=== PATIENT | male | born 1965 | race Caucasian/White ===

== ENCOUNTER 2018-11-16 16:19 | Emergency (ER) | payer MEDICAID ==
[~2018-11-16] VITALS: Ht 167.6 cm; Wt 89.0 kg
[~2018-11-16 16:19] MED LIST: DIPH25CA61 PO; INDO50CA5 PO; LORA10TA62 PO
--- NOTE | 2018-11-16 16:31 | NUR ---
PRECEPTOR RN: PT TAKEN TO TR02 & ASSESSED BY MD MCKEON DIRECTLY FROM TRIAGE. PT DRESSED IN GOWN, ATTACHED TO CONTINUOUS CARDIAC, PULSE OX & BP. REPORT TO NAHOMY LAUREANO
--- NOTE | 2018-11-16 16:33 | NUR ---
PT REPORTS FATIGUE, N/V, RIGHT SIDED ABD PAIN. PT PALE, DIAPHORETIC. ER PA IN TO ASSESS PT.
[2018-11-16] MEDS ORDERED: ONDANSETRON 2MG/ML, 2ML ONE (16:53)
[2018-11-16] MEDS ORDERED: SODIUM CHLORIDE 0.9% 1,000ML IVBOLUS ONE (17:00)
[2018-11-16] MEDS ORDERED: ONDANSETRON 2MG/ML, 2ML IVPush ONE (17:00)
[2018-11-16] MEDS ORDERED: SODIUM CHLORIDE FLUSH 10ML SYR IVF ONE (17:00)
--- NOTE | 2018-11-16 17:25 | NUR ---
PT STATES HE DOES NOT WANT PAIN MEDS AT THIS TIME
[2018-11-16 17:30] LABS: BASOPHILS # (AUTO) 0.03 x10^3/uL (0-0.1); BASOPHILS % (AUTO) 0 % (0-1); EOSINOPHILS # (AUTO) 0.15 x10^3/uL (0-0.4); EOSINOPHILS % (AUTO) 3 % (1-7); LYMPHOCYTES # (AUTO) 2.18 x10^3/uL (1-3.4); LYMPHOCYTES % (AUTO) 37 % (22-44); MD NO; MEAN CORPUSCULAR HEMOGLOBIN 27.5 pg (27.5-34.5); MEAN CORPUSCULAR HGB CONC 32.7 g/dL (33.2-36.2); MEAN CORPUSCULAR VOLUME 84.3 fL (81-97); MONOCYTES # (AUTO) 0.41 x10^3/uL (0.2-0.8); MONOCYTES % (AUTO) 7 % (2-9); NEUTROPHILS # (AUTO) 3.19 x10^3/uL (1.8-6.8); NEUTROPHILS % (AUTO) 54 % (42-75); PLATELET COUNT 292 x10^3/uL (130-400); RED BLOOD COUNT 4.63 x10^6/uL (4.38-5.82); RED CELL DISTRIBUTION WIDTH 18.5 % (9.4-14.8)
[2018-11-16] MEDS ORDERED: MORPHINE SULFATE 4 MG/ML, 1ML IVPush ONE (17:30)
[2018-11-16 17:42] LABS: ALANINE AMINOTRANSFERASE 21 U/L (12-78); ALBUMIN 3.5 g/dL (3.4-5.0); ANION GAP 7 mmol/L (5-15); CALCIUM 8.2 mg/dL (8.5-10.1); CHLORIDE 109 mmol/L (98-107); CREATININE 0.95 mg/dL (0.7-1.3)
[2018-11-16 17:46] LABS: ALKALINE PHOSPHATASE 73 U/L (45-117); TOTAL PROTEIN 6.7 g/dL (6.4-8.2); TROPONIN I < 0.015 ng/mL (0.000-0.045)
[2018-11-16 17:49] LABS: BILIRUBIN,TOTAL < 0.1 mg/dL (0.2-1.0)
--- NOTE | 2018-11-16 18:12 | NUR ---
pt sleeping on gurney. VS stable
--- NOTE | 2018-11-16 18:31 | NUR ---
PT IN CT AT THIS TIME
[2018-11-16] MEDS ORDERED: OMNIPAQUE 350 MG/ML, 100ML BOTTLE ONE (18:43)
[2018-11-16 18:53] VITALS: BP 136/88
--- NOTE | 2018-11-16 18:54 | NUR ---
REPORT FROM NAHOMY KHAN. PT RESTING IN [facility] W/ EYES CLOSED, EVEN/REGULAR RESPIRATIONS NOTED. PT EASILY ARROUSABLE TO VOICE. SPEECH CLEAR. A&OX4. BP/SPO2/ECG MONITORING IN PLACE. NSR ON MONITOR. SPO2 97% ON 2L BY NC. ROOM AIR TRIAL INITIATED. PT REPORTS "I'M FEELING BETTER. CAN I WALK OUT?". TO SPEAK WITH ERP REGARDING DISPO
--- NOTE | 2018-11-16 19:33 | NUR ---
SPO2 >90% ON RA. RR WNL. PT REMAINS A&OX4, CLEAR SPEECH. PT AMBULATORY WITHOUT ASSISTANCE. DC EDUCATION PROVIDED, PT DEMONSTRATES UNDERSTANDING. PT AMBULATED STEADILY TO [place] ARIADNA RN. PT PROVIDED TAXI VOUCHER TO [facility] FOR [facility] TRANSPORT HOME.
== END 2018-11-16 19:36 | disposition home or self-care (01) ==
LOC: ED 18:34
DX: K29.20 Alcoholic gastritis without bleeding (principal); F10.120 Alcohol abuse with intoxication, uncomplicated; F41.9 Anxiety disorder, unspecified; F12.129 Cannabis abuse with intoxication, unspecified; M06.9 Rheumatoid arthritis, unspecified; I10 Essential (primary) hypertension
CPT/HCPCS: 36415; 71045; 71275; 74175; 80053; 80307; 83690; 83735; 83880; 84484; 85025; 93005; 96374; 99291; J2405; J7030; Q9967